=== PATIENT | female | born 1995 | race Caucasian/White ===

== ENCOUNTER → 2018-04-30 16:56 | Outpatient (CLI) | payer BC, SELFPAY ==
--- NOTE | 2018-04-30 16:59 | DI.MRI.S_ITS ---
PROCEDURE: MR LUMBAR SPINE WO CON INDICATIONS: LUMBAR RADICULOPATHY TECHNIQUE: Noncontrast sagittal T1 spin echo and T2 fast echo, sagittal STIR, axial T1 and T2 fast spin echo through the lumbar spine. In cases with scoliosis, additional coronal T2 fast spin echo may be performed. COMPARISON: None. FINDINGS: Image quality: Excellent. Alignment and Curvature: No plain films are available for comparison, for numbering purposes. Thus, for the purposes of this examination, 5 lumbar type vertebral bodies will be presumed, as denoted on the montage panel. This should be confirmed and correlated with plain films, prior to any lumbar spinal intervention. There is loss of normal lumbar lordosis. There is mild, grade 1 retrolisthesis of L4 on L5 and L5 on S1. Bone Marrow: Marrow is of normal overall signal. No acute vertebral body compression fractures. Minimal reactive signal within the endplates adjacent to the L4-L5 and L5-S1 intervertebral discs. Spinal Cord: Conus medullaris terminates at the mid L1 level. Visualized cord demonstrates normal signal and size. Paraspinous Soft Tissues: No paravertebral masses. L1-L2: Congenital canal stenosis. Moderate disc height loss and desiccation. Mild diffuse disc bulge. Mild bilateral facet and ligamentum flavum hypertrophy. Mild epidural lipomatosis. Mild canal stenosis. No foraminal stenosis. L2-L3: Congenital canal stenosis. Mild bilateral facet and ligamentum flavum hypertrophy. Mild epidural lipomatosis. Overall mild canal stenosis. Mild bilateral foraminal stenosis. L3-L4: Congenital canal stenosis. Mild disc desiccation. Mild diffuse disc bulge. Mild epidural lipomatosis. Mild facet and ligamentum flavum hypertrophy. Overall mild canal stenosis and mild bilateral foraminal stenosis. L4-L5: Moderate disc height loss and desiccation. Congenital canal stenosis. Moderate diffuse disc bulge. Mild bilateral facet and ligamentum flavum hypertrophy. Moderate canal stenosis. Mild bilateral foraminal stenosis. Bilateral lateral recess stenosis. Mild posterior deviation of the right L5 nerve root. L5-S1: Moderate disc height loss and desiccation. Moderate diffuse disc bulge with superimposed broad-based right paracentral protrusion. Mild bilateral facet hypertrophy. Congenital canal stenosis. Overall moderate canal stenosis. Mild bilateral foraminal stenosis. Mild posterior deviation of the right S1 nerve root within the lateral recess. IMPRESSION: 1.5 lumbar type vertebral bodies were presumed for the current report. Plain films of the lumbar spine are recommended for confirmation, prior to any lumbar spinal intervention. 2. Diffuse congenital canal stenosis with superimposed degenerative disc and facet disease, as well as ligamentum flavum hypertrophy and epidural lipomatosis. 3. Multilevel canal stenoses, worst at L4-L5 and L5-S1, where there are moderate canal stenoses present. 4. Right L5 and S1 nerve root impingement at the L4-L5 and L5-S1 disc space levels respectively, as described above. Recommend correlation with clinical symptoms to ascertain relevance of these findings. Dictated by: Jon Macias M.D. on 05/01/2018 at 8:07 Approved by: Jon Macais M.D. on 05/01/2018 at 8:10
== END ==
PROVIDERS: Visit Provider Physical Medicine & Rehabilitation
DX: M51.16 Intervertebral disc disorders with radiculopathy, lumbar region (principal); M51.17 Intervertebral disc disorders with radiculopathy, lumbosacral region; M48.061 Spinal stenosis, lumbar region without neurogenic claudication; M48.07 Spinal stenosis, lumbosacral region; E88.2 Lipomatosis, not elsewhere classified
CPT/HCPCS: 72148